=== PATIENT | female | born 1965 | race African-American/Black ===

== ENCOUNTER 2023-01-14 06:14 | Emergency (ER) | payer MEDICAID ==
[~2023-01-14] VITALS: Ht 167.6 cm; Wt 80.0 kg
[~2023-01-14 06:14] MED LIST: ACET-2708 PO; ATOR40TA70 MT; DULO20CA18 PO; GABA-533 PO; LISI10TA26 PO; METF-414 MT; METO25TA6 PO
[2023-01-14 06:20] VITALS: BP 158/98
[2023-01-14] MEDS ORDERED: IBUPROFEN 600MG TABLET PO STA (06:37)
== END 2023-01-14 12:26 | disposition left against medical advice (07) ==
LOC: ER 06:14
DX: I16.0 Hypertensive urgency (principal); M79.662 Pain in left lower leg; Z79.899 Other long term (current) drug therapy
CPT/HCPCS: 99283